=== PATIENT | female | born 1940 | race Caucasian/White ===

== ENCOUNTER 2018-05-20 14:18 | Emergency (ER) | payer MEDICARE, OTHER ==
[~2018-05-20] VITALS: Ht 172.7 cm; Wt 92.0 kg
[2018-05-20 14:54] VITALS: BP 133/73
[2018-05-20] MEDS ORDERED: KEFLEX500 M1 PO (16:32)
== END 2018-05-20 16:50 | disposition home or self-care (01) ==
LOC: ED 14:18
PROC: 0HQ1XZZ Repair Face Skin, External Approach (ICD-10-PCS; principal; 2018-05-20)
DX: S01.81XA Laceration without foreign body of other part of head, initial encounter (principal); S80.211A Abrasion, right knee, initial encounter; S61.213A Laceration without foreign body of left middle finger without damage to nail, initial encounter; W10.1XXA Fall (on)(from) sidewalk curb, initial encounter; Y93.K1 Activity, walking an animal; Y92.29 Other specified public building as the place of occurrence of the external cause